=== PATIENT | male | born 1965 | race African-American/Black ===

== ENCOUNTER 2016-04-29 14:40 | Emergency (ER) | payer BC ==
[~2016-04-29] VITALS: Ht 177.8 cm; Wt 117.9 kg
--- NOTE | ~2016-04-29 | EKG ---
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 : 1965 Requested By: Ghulam Haskins Order Number: [id number] MD: Zen Torres Measurements Intervals [place] Rate: 59 P: 25 TN: 142 QRS: 31 QRSD: 89 T: 30 QT: 410 QTc: 407 Interpretive Statements Sinus rhythm No significant abnormality No previous ECG available for comparison Electronically Signed On 04-30-2016 7:27:33 CDT by Zen Torres [email or web address] <ELECTRONICALLY SIGNED> By: Zen Torres MD, [facility] 04/30/16 0727 1705 1705 Zen Torres MD, FACC /EPI
--- NOTE | ~2016-04-29 | EKG ---
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
[~2016-04-29 14:40] MED LIST: GLUCOPHAGE XR500 MG; IBUPROFEN 800800 MG PO; NORCO 5-325 TA1 EACH PO; NORFLEX100 MG PO; PRINIVIL20 MG; SIMVASTATIN10 MG
[2016-04-29 15:13] LABS: BASOPHILS 0.7 % (0.0-2.0); EOSINOPHILS 2.9 % (0.0-3.0); HEMATOCRIT 47.2 % (42.0-52.0); HEMOGLOBIN 16.1 gm/dL (14.0-18.0); LYMPHOCYTES 31.9 % (24.0-44.0); MCH 29.3 pg (26.0-34.0); MCV 86.2 fL (80.0-100.0); MONOCYTES 8.5 % (1.0-8.0); PLATELET COUNT 246 thou/uL (150-400); RBC 5.48 mil/uL (4.50-6.00); RDW 14.2 % (10.5-14.5); WBC 7.1 thou/uL (4.0-11.0)
[2016-04-29 15:14] LABS: MANUAL DIFF NO
[2016-04-29 15:21] LABS: ANION GAP 6 mmol/L (7-16); BUN 13 mg/dL (7-18); CHLORIDE 105 mmol/L (98-107); CO2 27 mmol/L (21-32); CREATININE 1.1 mg/dL (0.6-1.3); GLUCOSE 138 mg/dL (70-99); POTASSIUM 3.8 mmol/L (3.5-5.1); SODIUM 138 mmol/L (136-145)
[2016-04-29 15:28] LABS: ALBUMIN 3.7 g/dL (3.4-5.0); ALKALINE PHOSPHATASE 72 U/L (46-116); SGOT 26 U/L (15-37); SGPT 60 U/L (30-65); TOTAL BILIRUBIN 0.5 mg/dL (<0.1-1.0); TOTAL PROTEIN 7.5 g/dL (6.4-8.2); TROPONIN-I < 0.04 ng/mL (<0.04-0.07)
[2016-04-29 17:45] VITALS: BP 122/65
== END 2016-04-29 17:51 | disposition home or self-care (01) ==
LOC: ER 14:40
PROVIDERS: Emergency Medicine
DX: R07.89 Other chest pain (principal); I10 Essential (primary) hypertension; E11.9 Type 2 diabetes mellitus without complications; E78.5 Hyperlipidemia, unspecified; F10.99 Alcohol use, unspecified with unspecified alcohol-induced disorder

== ENCOUNTER 2017-05-01 14:11 | Emergency (ER) | payer BC ==
[~2017-05-01] VITALS: Ht 177.8 cm; Wt 104.3 kg
[2017-05-01] MEDS ORDERED: FLOMAX0.4 MG PO (14:29)
[2017-05-01] MEDS ORDERED: COZAAR 25 MG TA25 M1 PO (14:29)
[2017-05-01] MEDS ORDERED: ZOCOR20 MG PO (14:29)
[2017-05-01 14:45] LABS: ABSOLUTE NEUTROPHILS 2.6 thou/uL (1.4-8.2); BASOPHILS 0.8 % (0.0-2.0); EOSINOPHILS 2.8 % (0.0-3.0); HEMATOCRIT 45.9 % (42.0-52.0); HEMOGLOBIN 15.8 gm/dL (14.0-18.0); LYMPHOCYTES 34.7 % (24.0-44.0); MCH 29.9 pg (26.0-34.0); MCHC 34.3 g/dL (28.0-37.0); MCV 87.2 fL (80.0-100.0); MONOCYTES 10.4 % (1.0-8.0); PLATELET COUNT 252 thou/uL (150-400); POLYS 51.3 % (36.0-66.0); RBC 5.27 mil/uL (4.50-6.00); RDW 13.7 % (10.5-14.5); WBC 5.1 thou/uL (4.0-11.0)
[2017-05-01 14:52] LABS: CALCIUM 9.4 mg/dL (8.5-10.1); POTASSIUM 3.7 mmol/L (3.5-5.1)
[2017-05-01 16:59] VITALS: BP 104/62
== END 2017-05-01 16:59 | disposition home or self-care (01) ==
LOC: ER 14:11
PROVIDERS: Physician Assistant
DX: H40.10X0 Unspecified open-angle glaucoma, stage unspecified (principal); H53.8 Other visual disturbances; I10 Essential (primary) hypertension; E11.9 Type 2 diabetes mellitus without complications; E78.5 Hyperlipidemia, unspecified